=== PATIENT | female | born 1950 | race African-American/Black ===

== ENCOUNTER 2017-11-21 11:28 | Observation (INO) ==
[2017-11-21 12:31] LABS: Basophils % 0.4 % (0.0-0.8); Eosinophils % 0.4 % (0.00-10.9); Hematocrit 38.9 VOL% (35.7-47.0); Hemoglobin 12.2 GM/DL (12.0-16.0); Immature Granulocytes % 0.4 %; Immature Granulocytes Absolute 0.04 #; Lymphocytes # 1.6 10*3/uL (1.4-4.0); Mean Corpuscular HGB Conc 31.4 GM/DL (32-36); Mean Corpuscular Hemoglobin 30 PG (27-34); Mean Platelet Volume 12.5 FL (9.6-12.0); Monocytes # 0.7 10*3/uL (0.11-0.8); Neutrophils # 8.1 10*3/uL (1.4-7.4); Neutrophils % 76.8 % (38.7-73.9); Platelet Count 219 T/CUMM (130-400); Red Blood Count 4.05 MC/CUMM (3.8-5.5); Red Cell Distribution Width 14.2 % (9.3-17.3); White Blood Count 10.6 T/CUMM (4-12)
[2017-11-21 12:40] LABS: INR 1.6; PT Patient Result 16.7 SECS
[2017-11-21 12:54] LABS: Alanine Aminotransferase 22 U/L (13-56); Albumin 3.6 G/DL (3.4-5.0); Alkaline Phosphatase 77 U/L (45-117); Aspartate Amino Transferase 23 U/L (0-37); Bilirubin,Total < 0.39 MG/DL (0.2-1.0); Blood Urea Nitrogen 19 MG/DL (7-18); Calcium 9.1 MG/DL (8.5-10.1); Glucose 138 MG/DL (74-106); Osmolality,Calculated 278.7 MOS/KG (273-304); Potassium 4.3 MMOL/L (3.5-5.1); Sodium 138 MMOL/L (136-145); Total Protein 7.5 G/DL (6.4-8.3)
[2017-11-21 13:57] LABS: Apearance,Urine CLEAR (Clear); Bilirubin,Urine Negative (Negative); Blood, Urine Negative (Negative); Glucose,Urine (UA) >=500 mg/dL (Negative); Ketones,Urine 5 mg/dL (Negative); Nitrite,Urine Negative (Negative); Protein,Urine Negative; RBC,Urine <1 /HPF (0-4); Squamous Epithelial Cell,Urine Occasional /HPF (0-10); Urine Color Yellow (Yellow); Urine Specific Gravity 1.013 (1.001-1.035); Urine Urobilinogen < 2.0 EU/DL (0.2-1.0); WBC,Urine <1 /HPF (0-6)
[2017-11-22 06:45] LABS: INR 2.4
[2017-11-22 06:52] LABS: PT Patient Result 24.8 SECS
[2017-11-22 07:06] LABS: Potassium 3.9 MMOL/L (3.5-5.1)
[2017-11-24 07:30] VITALS: BP 138/76
== END 2017-11-24 11:06 ==
LOC: N.EDINP 11:28 → N.ED 11:28 → N.EDINP 15:41 → N.2W 15:47 → N.4E 17:40 → N.2E 11-22 20:30
PROVIDERS: ADMIT Family Medicine; ATTEND Family Medicine

== ENCOUNTER 2017-12-11 20:32 | Inpatient (IN) ==
[2017-12-11 21:59] LABS: Basophils # 0.1 10*3/uL (0.0-0.2); Basophils % 0.5 % (0.0-0.8); Eosinophils # 0.2 10*3/uL (0.0-0.87); Eosinophils % 2.1 % (0.00-10.9); Hemoglobin 11.8 GM/DL (12.0-16.0); Immature Granulocytes % 0.2 %; Immature Granulocytes Absolute 0.02 #; Lymphocytes # 2.9 10*3/uL (1.4-4.0); Lymphocytes % 31.4 % (21.3-54.2); Mean Corpuscular HGB Conc 31.9 GM/DL (32-36); Mean Corpuscular Hemoglobin 31 PG (27-34); Mean Corpuscular Volume 96.4 FL (87-102); Mean Platelet Volume 12.3 FL (9.6-12.0); Monocytes # 0.6 10*3/uL (0.11-0.8); Monocytes % 6.9 % (1.7-12.7); Neutrophils # 5.5 10*3/uL (1.4-7.4); Neutrophils % 58.9 % (38.7-73.9); Platelet Count 234 T/CUMM (130-400); Red Blood Count 3.84 MC/CUMM (3.8-5.5); Red Cell Distribution Width 13.9 % (9.3-17.3); White Blood Count 9.3 T/CUMM (4-12)
[2017-12-11 22:13] LABS: INR 1.9; PT Patient Result 19.3 SECS
[2017-12-11 22:18] LABS: Ammonia 19 UMOL/L (11-32)
[2017-12-11 22:23] LABS: Alanine Aminotransferase < 9 U/L (13-56); Albumin 3.6 G/DL (3.4-5.0); Alkaline Phosphatase 74 U/L (45-117); Aspartate Amino Transferase 20 U/L (0-37); Bilirubin,Total < 0.39 MG/DL (0.2-1.0); Blood Urea Nitrogen 24 MG/DL (7-18); Calcium 9.5 MG/DL (8.5-10.1); Glucose 108 MG/DL (74-106); Osmolality,Calculated 281.5 MOS/KG (273-304); Potassium 4.1 MMOL/L (3.5-5.1); Sodium 139 MMOL/L (136-145); Total Protein 7.3 G/DL (6.4-8.3)
[2017-12-11 22:40] LABS: Apearance,Urine CLEAR (Clear); Bilirubin,Urine Negative (Negative); Blood, Urine Negative (Negative); Glucose,Urine (UA) >=500 mg/dL (Negative); Hyaline Casts,Urine 1 /LPF (0-3); Ketones,Urine 5 mg/dL (Negative); Mucus,Urine Occasional /LPF (Occasional); Nitrite,Urine Negative (Negative); Protein,Urine Negative; Squamous Epithelial Cell,Urine Occasional /HPF (0-10); Urine Color Amber (Yellow); Urine Specific Gravity 1.017 (1.001-1.035); Urine Urobilinogen < 2.0 EU/DL (0.2-1.0)
[2017-12-11 23:02] LABS: Acetaminophen < 2.0 UG/ML (10-30); Salicylate 4.9 MG/DL (2.8-20)
[2017-12-12] MEDS ORDERED: ACETAMINOPHEN 325 MG TABLET PO PRN (00:36)
[2017-12-12] MEDS ORDERED: LACTULOSE 20 GM/30 ML UDCUP PO PRN (00:36)
[2017-12-12] MEDS ORDERED: GLUCAGON 1 MG VIAL IM PRN (00:36)
[2017-12-12] MEDS ORDERED: ONDANSETRON 4 MG/2 ML VIAL IV PRN (00:36)
[2017-12-12] MEDS ORDERED: DEXTROSE 50% 25 GM/50 ML VIAL IV PRN (00:36)
[2017-12-12] MEDS: SODIUM CHLORIDE 0.9% 1,000 ML IV SCH ×2 (01:11→16:05)
[2017-12-12 04:51] LABS: Barbiturates Screen,Urine Negative (Negative); Benzodiazepines Screen,Urine Negative (Negative); Cannabinoid Screen,Urine Negative (Negative); Opiate Screen,Urine Negative (Negative); Phencyclidine Screen,Urine Negative (Negative)
[2017-12-12 06:23] LABS: Basophils # 0.1 10*3/uL (0.0-0.2); Basophils % 0.7 % (0.0-0.8); Eosinophils # 0.2 10*3/uL (0.0-0.87); Eosinophils % 2.3 % (0.00-10.9); Hematocrit 35.8 VOL% (35.7-47.0); Hemoglobin 11.3 GM/DL (12.0-16.0); Immature Granulocytes % 0.4 %; Immature Granulocytes Absolute 0.03 #; Lymphocytes # 2.3 10*3/uL (1.4-4.0); Lymphocytes % 33.2 % (21.3-54.2); Mean Corpuscular HGB Conc 31.6 GM/DL (32-36); Mean Corpuscular Hemoglobin 30 PG (27-34); Mean Platelet Volume 12.7 FL (9.6-12.0); Monocytes # 0.4 10*3/uL (0.11-0.8); Monocytes % 5.7 % (1.7-12.7); Neutrophils # 3.9 10*3/uL (1.4-7.4); Neutrophils % 57.7 % (38.7-73.9); Platelet Count 241 T/CUMM (130-400); Red Blood Count 3.77 MC/CUMM (3.8-5.5); Red Cell Distribution Width 13.9 % (9.3-17.3); White Blood Count 6.8 T/CUMM (4-12)
[2017-12-12 06:49] LABS: Alanine Aminotransferase 14 U/L (13-56); Albumin 3.2 G/DL (3.4-5.0); Alkaline Phosphatase 67 U/L (45-117); Aspartate Amino Transferase 12 U/L (0-37); Bilirubin,Total < 0.39 MG/DL (0.2-1.0); Blood Urea Nitrogen 19 MG/DL (7-18); Calcium 9.4 MG/DL (8.5-10.1); Cholesterol 131 MG/DL (50-200); Glucose 149 MG/DL (74-106); HDL Cholesterol 51 MG/DL (40-60); Osmolality,Calculated 285.3 MOS/KG (273-304); Potassium 4.1 MMOL/L (3.5-5.1); Risk Ratio 2.57; Sodium 141 MMOL/L (136-145); Total Protein 6.7 G/DL (6.4-8.3); Triglycerides 140 MG/DL (2-150)
[2017-12-12] MEDS: INSULIN REGULAR 100 UNIT/ML SUBCUT SCH ×4 (08:51→22:37)
[2017-12-12] MEDS: DOCUSATE SODIUM 100 MG CAPSULE PO SCH ×2 (08:53→22:36)
[2017-12-12] MEDS: PANTOPRAZOLE 40 MG VIAL IV SCH (08:53)
[2017-12-12] MEDS: ENTACAPONE 200 MG TABLET PO SCH ×3 (13:02→22:37)
[2017-12-12] MEDS: CARBIDOPA/LEVODOPA CR 50-200 MG TABLET PO SCH ×3 (13:38→22:37)
[2017-12-12] MEDS: MAGNESIUM CHLORIDE 64 MG TABLET PO SCH ×2 (15:03→22:37)
[2017-12-12] MEDS: clonazePAM 0.5 MG TABLET PO SCH ×2 (15:03→22:37)
[2017-12-12] MEDS ORDERED: WARFARIN 7.5 MG TABLET PO SCH (18:00)
[2017-12-12] MEDS: MEMANTINE 10 MG TABLET PO SCH (22:37)
[2017-12-12] MEDS: metFORMIN 500 MG TABLET PO SCH (22:37)
[2017-12-13] MEDS: SODIUM CHLORIDE 0.9% 1,000 ML IV SCH (05:28)
[2017-12-13 06:00] LABS: Apearance,Urine CLEAR (Clear); Bilirubin,Urine Negative (Negative); Blood, Urine Negative (Negative); Glucose,Urine (UA) 150 mg/dL (Negative); Ketones,Urine Negative (Negative); Nitrite,Urine Negative (Negative); Protein,Urine Negative; Urine Color Yellow (Yellow); Urine Specific Gravity 1.005 (1.001-1.035); Urine Urobilinogen < 2.0 EU/DL (0.2-1.0); WBC,Urine <1 /HPF (0-6)
[2017-12-13] MEDS: CARBIDOPA/LEVODOPA CR 50-200 MG TABLET PO SCH ×4 (08:54→21:02)
[2017-12-13] MEDS: Canagliflozin [Invokana] 100 MG PO SCH (08:54)
[2017-12-13] MEDS: MEMANTINE 10 MG TABLET PO SCH ×2 (08:55→21:07)
[2017-12-13] MEDS: metFORMIN 500 MG TABLET PO SCH ×2 (08:55→21:02)
[2017-12-13] MEDS: DOCUSATE SODIUM 100 MG CAPSULE PO SCH ×2 (08:55→21:02)
[2017-12-13] MEDS: ENTACAPONE 200 MG TABLET PO SCH ×4 (08:55→21:02)
[2017-12-13] MEDS: CHOLECALCIFEROL 1,000 UNIT TABLET PO SCH (08:56)
[2017-12-13] MEDS: ASPIRIN CHEW 81 MG TABLET PO SCH (08:56)
[2017-12-13] MEDS: clonazePAM 0.5 MG TABLET PO SCH ×3 (08:56→21:02)
[2017-12-13] MEDS: ASCORBIC ACID 500 MG TABLET PO SCH (08:56)
[2017-12-13] MEDS: PARoxetine 20 MG TABLET PO SCH (08:56)
[2017-12-13] MEDS: DILTIAZEM CD 240 MG CAPSULE PO SCH (08:57)
[2017-12-13] MEDS: MAGNESIUM CHLORIDE 64 MG TABLET PO SCH ×3 (08:59→21:02)
[2017-12-13] MEDS ORDERED: VANCOMYCIN INJ 1,000 MG in SODIUM CHLORIDE 0.9% 250 ML IV SCH (09:00)
[2017-12-13] MEDS: PANTOPRAZOLE 40 MG VIAL IV SCH (09:05)
[2017-12-13 09:26] LABS: INR 1.9; PT Patient Result 19.3 SECS
[2017-12-13] MEDS: LISINOPRIL 20 MG TABLET PO SCH (09:35)
[2017-12-13] MEDS: INSULIN REGULAR 100 UNIT/ML SUBCUT SCH ×4 (09:36→21:03)
[2017-12-13] MEDS: VANCOMYCIN INJ 1,250 MG in SODIUM CHLORIDE 0.9% 250 ML IV SCH ×2 (10:37→18:05)
[2017-12-13] MEDS ORDERED: WARFARIN 10 MG TABLET PO SCH (18:00)
[2017-12-14] MEDS: VANCOMYCIN INJ 1,250 MG in SODIUM CHLORIDE 0.9% 250 ML IV SCH ×2 (03:28→13:00)
[2017-12-14 06:57] LABS: INR 1.7; PT Patient Result 18.1 SECS
[2017-12-14 07:28] LABS: Calcium 9.4 MG/DL (8.5-10.1); Osmolality,Calculated 284.1 MOS/KG (273-304); Potassium 3.9 MMOL/L (3.5-5.1)
[2017-12-14] MEDS: INSULIN REGULAR 100 UNIT/ML SUBCUT SCH ×2 (07:37→13:00)
[2017-12-14] MEDS: PANTOPRAZOLE 40 MG VIAL IV SCH (08:27)
[2017-12-14] MEDS: CARBIDOPA/LEVODOPA CR 50-200 MG TABLET PO SCH ×2 (08:27→11:50)
[2017-12-14] MEDS: ASPIRIN CHEW 81 MG TABLET PO SCH (08:27)
[2017-12-14] MEDS: LISINOPRIL 20 MG TABLET PO SCH (08:27)
[2017-12-14] MEDS: DILTIAZEM CD 240 MG CAPSULE PO SCH (08:28)
[2017-12-14] MEDS: ASCORBIC ACID 500 MG TABLET PO SCH (08:28)
[2017-12-14] MEDS: PARoxetine 20 MG TABLET PO SCH (08:28)
[2017-12-14] MEDS: CHOLECALCIFEROL 1,000 UNIT TABLET PO SCH (08:28)
[2017-12-14] MEDS: DOCUSATE SODIUM 100 MG CAPSULE PO SCH (08:28)
[2017-12-14] MEDS: clonazePAM 0.5 MG TABLET PO SCH (08:28)
[2017-12-14] MEDS: MEMANTINE 10 MG TABLET PO SCH (08:28)
[2017-12-14] MEDS: MAGNESIUM CHLORIDE 64 MG TABLET PO SCH (08:29)
[2017-12-14] MEDS: ENTACAPONE 200 MG TABLET PO SCH ×2 (08:29→11:50)
[2017-12-14] MEDS: metFORMIN 500 MG TABLET PO SCH (08:29)
[2017-12-14] MEDS: Canagliflozin [Invokana] 100 MG PO SCH (09:01)
[2017-12-14 12:31] VITALS: BP 143/74
[2017-12-14] MEDS ORDERED: WARFARIN 4 MG TABLET PO SCH (18:00)
[2017-12-14] MEDS ORDERED: WARFARIN 5 MG TABLET PO SCH (18:00)
== END 2017-12-14 14:00 | DRG 918 ==
LOC: EDBD → EDUNIT# → N.ED 20:32 → OBSVTOIN 23:14 → N.EDINP 23:14 → INTOOBSV 23:14 → N.5E 12-12
PROVIDERS: ADMIT Family Medicine; ATTEND Family Medicine

== ENCOUNTER 2018-11-14 15:18 | Observation (INO) ==
[2018-11-14] MEDS ORDERED: ONDANSETRON 4 MG/2 ML VIAL IV PRN (15:58)
[2018-11-14] MEDS ORDERED: GLUCAGON 1 MG VIAL IM PRN (15:58)
[2018-11-14] MEDS ORDERED: DEXTROSE 10% 250 ML BAG IV PRN (15:58)
[2018-11-14] MEDS ORDERED: FUROSEMIDE 20 MG/2 ML VIAL IV PRN (16:47)
[2018-11-14] MEDS ORDERED: SODIUM CHLORIDE 0.9% 1,000 ML IV PRN (16:47)
[2018-11-14 17:17] LABS: Basophils % 0.4 % (0.0-0.8); Eosinophils # 0.1 10*3/uL (0.0-0.87); Eosinophils % 1.2 % (0.00-10.9); Hematocrit 28.7 VOL% (35.7-47.0); Hemoglobin 7.5 GM/DL (12.0-16.0); Immature Granulocytes % 0.4 %; Immature Granulocytes Absolute 0.04 #; Lymphocytes % 21.8 % (21.3-54.2); Mean Corpuscular HGB Conc 26.1 GM/DL (32-36); Mean Corpuscular Volume 76.7 FL (87-102); Mean Platelet Volume 10.9 FL (9.6-12.0); Neutrophils % 68.2 % (38.7-73.9); Platelet Count 490 T/CUMM (130-400); Red Blood Count 3.74 MC/CUMM (3.8-5.5); Red Cell Distribution Width 22.5 % (9.3-17.3)
[2018-11-14 17:18] LABS: Anisocytosis 1+; Hypochromasia 1+; Target Cells Few
[2018-11-14 17:19] LABS: Elliptocytes Few; Platelet Estimate Adequate; Schistocytes Few
[2018-11-14 17:22] LABS: Albumin 3.4 G/DL (3.4-5.0); Bilirubin,Total 0.6 MG/DL (0.2-1.0); Calcium 9.3 MG/DL (8.5-10.1); Osmolality,Calculated 278.4 MOS/KG (273-304); Total Protein 7.4 G/DL (6.4-8.3)
[2018-11-14] MEDS: INSULIN LISPRO 100 UNIT/ML SUBCUT SCH ×2 (17:25→21:52)
[2018-11-14] MEDS: MAGNESIUM CHLORIDE 64 MG TABLET PO SCH (20:53)
[2018-11-14] MEDS: PRAMIPEXOLE 0.25 MG TABLET PO SCH (20:53)
[2018-11-14] MEDS: risperiDONE 1 MG TABLET PO SCH (20:53)
[2018-11-14] MEDS: DOCUSATE SODIUM 100 MG CAPSULE PO SCH (20:59)
[2018-11-14] MEDS: MEMANTINE 10 MG TABLET PO SCH (22:21)
[2018-11-14] MEDS: CARBIDOPA/LEVODOPA 25-100 MG TABLET PO SCH (22:22)
[2018-11-15 06:17] LABS: Basophils % 0.4 % (0.0-0.8); Eosinophils # 0.2 10*3/uL (0.0-0.87); Eosinophils % 2.2 % (0.00-10.9); Hemoglobin 9.3 GM/DL (12.0-16.0); Immature Granulocytes % 0.4 %; Immature Granulocytes Absolute 0.04 #; Lymphocytes # 2.3 10*3/uL (1.4-4.0); Lymphocytes % 24.1 % (21.3-54.2); Mean Corpuscular HGB Conc 29.1 GM/DL (32-36); Mean Corpuscular Volume 77.1 FL (87-102); Monocytes % 8.3 % (1.7-12.7); NRBC # 0.02 10*3/uL; Neutrophils % 64.6 % (38.7-73.9); Platelet Count 425 T/CUMM (130-400); Red Blood Count 4.15 MC/CUMM (3.8-5.5); Red Cell Distribution Width 21.5 % (9.3-17.3); White Blood Count 9.6 T/CUMM (4-12)
[2018-11-15] MEDS: DILTIAZEM CD 240 MG CAPSULE PO SCH (09:36)
[2018-11-15] MEDS: PARoxetine 20 MG TABLET PO SCH (09:42)
[2018-11-15] MEDS: LISINOPRIL 20 MG TABLET PO SCH (09:42)
[2018-11-15] MEDS: MEMANTINE 10 MG TABLET PO SCH ×2 (09:42→21:16)
[2018-11-15] MEDS: DOCUSATE SODIUM 100 MG CAPSULE PO SCH ×2 (09:43→21:16)
[2018-11-15] MEDS: PRAMIPEXOLE 0.25 MG TABLET PO SCH ×3 (09:43→21:17)
[2018-11-15] MEDS: PANTOPRAZOLE 40 MG TABLET PO SCH (09:43)
[2018-11-15] MEDS: MAGNESIUM CHLORIDE 64 MG TABLET PO SCH ×3 (09:43→21:17)
[2018-11-15] MEDS: RIVASTIGMINE 9.5 MG/24 HR PATCH TRANSDERM SCH (09:43)
[2018-11-15] MEDS: CARBIDOPA/LEVODOPA 25-100 MG TABLET PO SCH ×4 (09:57→21:22)
[2018-11-15] MEDS: INSULIN LISPRO 100 UNIT/ML SUBCUT SCH ×3 (10:19→16:40)
[2018-11-15 11:08] LABS: INR 1.5; PT Patient Result 15.8 SECS
[2018-11-15 11:20] LABS: Calcium 9.2 MG/DL (8.5-10.1); Osmolality,Calculated 282.3 MOS/KG (273-304)
[2018-11-15] MEDS ORDERED: ATORVASTATIN 10 MG TABLET PO SCH (21:00)
[2018-11-15] MEDS: risperiDONE 1 MG TABLET PO SCH (21:16)
[2018-11-15] MEDS: ASCORBIC ACID 500 MG TABLET PO SCH (21:17)
[2018-11-15] MEDS: ACETAMINOPHEN 325 MG TABLET PO PRN (21:47)
[2018-11-16] MEDS: INSULIN LISPRO 100 UNIT/ML SUBCUT SCH ×3 (00:35→12:32)
[2018-11-16 05:12] LABS: INR 1.2; PT Patient Result 13.3 SECS
[2018-11-16 05:26] LABS: Basophils # 0.1 10*3/uL (0.0-0.2); Basophils % 0.4 % (0.0-0.8); Eosinophils # 0.3 10*3/uL (0.0-0.87); Eosinophils % 2.5 % (0.00-10.9); Hematocrit 34.5 VOL% (35.7-47.0); Hemoglobin 9.5 GM/DL (12.0-16.0); Immature Granulocytes % 0.4 %; Immature Granulocytes Absolute 0.05 #; Lymphocytes # 2.4 10*3/uL (1.4-4.0); Lymphocytes % 21.2 % (21.3-54.2); Mean Corpuscular HGB Conc 27.5 GM/DL (32-36); Mean Corpuscular Volume 78.8 FL (87-102); Mean Platelet Volume 11.2 FL (9.6-12.0); Monocytes % 8.5 % (1.7-12.7); Platelet Count 476 T/CUMM (130-400); Red Blood Count 4.38 MC/CUMM (3.8-5.5); Red Cell Distribution Width 22.4 % (9.3-17.3); White Blood Count 11.5 T/CUMM (4-12)
[2018-11-16 05:39] LABS: Calcium 9.2 MG/DL (8.5-10.1); Osmolality,Calculated 285.1 MOS/KG (273-304)
[2018-11-16 05:53] LABS: Anisocytosis 1+
[2018-11-16 05:54] LABS: Acanthocytes Few; Hypochromasia 1+; Platelet Estimate Normal; Tear Drop Cells Few
[2018-11-16 07:09] VITALS: BP 151/80
[2018-11-16] MEDS: CARBIDOPA/LEVODOPA 25-100 MG TABLET PO SCH ×2 (09:10→12:44)
[2018-11-16] MEDS: DILTIAZEM CD 240 MG CAPSULE PO SCH (09:11)
[2018-11-16] MEDS: MEMANTINE 10 MG TABLET PO SCH (09:11)
[2018-11-16] MEDS: RIVASTIGMINE 9.5 MG/24 HR PATCH TRANSDERM SCH (09:11)
[2018-11-16] MEDS: MAGNESIUM CHLORIDE 64 MG TABLET PO SCH (09:12)
[2018-11-16] MEDS: PARoxetine 20 MG TABLET PO SCH (09:12)
[2018-11-16] MEDS: DOCUSATE SODIUM 100 MG CAPSULE PO SCH (09:13)
[2018-11-16] MEDS: ASCORBIC ACID 500 MG TABLET PO SCH (09:13)
[2018-11-16] MEDS: LISINOPRIL 20 MG TABLET PO SCH (09:13)
[2018-11-16] MEDS: PRAMIPEXOLE 0.25 MG TABLET PO SCH (09:13)
[2018-11-16] MEDS: PANTOPRAZOLE 40 MG TABLET PO SCH (09:14)
[2018-11-16] MEDS: ACETAMINOPHEN 325 MG TABLET PO PRN ×2 (09:26→14:37)
== END 2018-11-16 15:05 | disposition home or self-care (01) ==
LOC: N.2E
PROVIDERS: ADMIT Family Medicine; ATTEND Family Medicine

== ENCOUNTER 2019-01-31 14:49 | Observation (INO) ==
[2019-01-31 16:30] LABS: Albumin 3.3 G/DL (3.4-5.0); Bilirubin,Total 0.4 MG/DL (0.2-1.0); Calcium 9.2 MG/DL (8.5-10.1); Osmolality,Calculated 280.4 MOS/KG (273-304); Total Protein 7.1 G/DL (6.4-8.3)
[2019-01-31 16:34] LABS: Basophils % 0.4 % (0.0-0.8); Eosinophils # 0.1 10*3/uL (0.0-0.87); Eosinophils % 0.6 % (0.00-10.9); Hemoglobin 12.1 GM/DL (12.0-16.0); Immature Granulocytes % 0.4 %; Immature Granulocytes Absolute 0.03 #; Lymphocytes # 1.5 10*3/uL (1.4-4.0); Lymphocytes % 17.7 % (21.3-54.2); Mean Corpuscular HGB Conc 30.3 GM/DL (32-36); Mean Corpuscular Volume 89.5 FL (87-102); Mean Platelet Volume 11.6 FL (9.6-12.0); Monocytes % 7.7 % (1.7-12.7); Neutrophils % 73.2 % (38.7-73.9); Platelet Count 197 T/CUMM (130-400); Red Blood Count 4.47 MC/CUMM (3.8-5.5); Red Cell Distribution Width 20.1 % (9.3-17.3); White Blood Count 8.3 T/CUMM (4-12)
[2019-01-31 16:50] LABS: Apearance,Urine CLEAR (Clear); Bilirubin,Urine Negative (Negative); Blood, Urine Negative (Negative); Glucose,Urine (UA) >=500 mg/dL (Negative); Hyaline Casts,Urine 3 /LPF (0-3); Ketones,Urine Negative (Negative); Mucus,Urine Occasional /LPF (Occasional); Nitrite,Urine Negative (Negative); Protein,Urine Negative; RBC,Urine 1 /HPF (0-4); Squamous Epithelial Cell,Urine Occasional /HPF (0-10); Urine Color Yellow (Yellow); Urine Specific Gravity 1.025 (1.001-1.035); Urine Urobilinogen < 2.0 EU/DL (0.2-1.0); WBC,Urine 1 /HPF (0-6)
[2019-01-31 17:16] LABS: Barbiturates Screen,Urine Negative (Negative); Benzodiazepines Screen,Urine Negative (Negative); Cannabinoid Screen,Urine Negative (Negative); Opiate Screen,Urine Negative (Negative); Phencyclidine Screen,Urine Negative (Negative)
[2019-01-31] MEDS ORDERED: DOCUSATE SODIUM 100 MG CAPSULE PO PRN (18:41)
[2019-01-31] MEDS ORDERED: ONDANSETRON 4 MG/2 ML VIAL IV PRN (18:41)
[2019-01-31] MEDS ORDERED: GLUCAGON 1 MG VIAL IM PRN (18:41)
[2019-01-31] MEDS ORDERED: DEXTROSE 10% 250 ML BAG IV PRN (18:41)
[2019-01-31] MEDS ORDERED: ACETAMINOPHEN 325 MG TABLET PO PRN (18:41)
[2019-01-31] MEDS: INSULIN REGULAR 100 UNIT/ML SUBCUT SCH (18:59)
[2019-01-31] MEDS: SODIUM CHLORIDE 0.9% 1,000 ML IV SCH (20:49)
[2019-01-31] MEDS: DOCUSATE SODIUM 100 MG CAPSULE PO SCH (20:50)
[2019-01-31] MEDS: ATORVASTATIN 10 MG TABLET PO SCH (20:50)
[2019-01-31] MEDS: PRAMIPEXOLE 0.25 MG TABLET PO SCH (20:50)
[2019-01-31] MEDS: MEMANTINE 10 MG TABLET PO SCH (20:50)
[2019-01-31] MEDS: MAGNESIUM CHLORIDE 64 MG TABLET PO SCH (20:50)
[2019-01-31] MEDS: QUEtiapine 100 MG TABLET PO SCH (20:51)
[2019-01-31] MEDS: metFORMIN 500 MG TABLET PO SCH (23:39)
[2019-02-01] MEDS: INSULIN REGULAR 100 UNIT/ML SUBCUT SCH ×5 (05:38→23:17)
[2019-02-01 08:29] LABS: Basophils % 0.5 % (0.0-0.8); Eosinophils # 0.1 10*3/uL (0.0-0.87); Eosinophils % 0.7 % (0.00-10.9); Hemoglobin 11.7 GM/DL (12.0-16.0); Immature Granulocytes % 0.4 %; Immature Granulocytes Absolute 0.03 #; Lymphocytes # 1.4 10*3/uL (1.4-4.0); Lymphocytes % 17.8 % (21.3-54.2); Mean Corpuscular Volume 90.7 FL (87-102); Mean Platelet Volume 12.1 FL (9.6-12.0); Monocytes % 8.1 % (1.7-12.7); Neutrophils % 72.5 % (38.7-73.9); Platelet Count 201 T/CUMM (130-400); White Blood Count 8.1 T/CUMM (4-12)
[2019-02-01 08:46] LABS: Alanine Aminotransferase 20 U/L (13-56); Alkaline Phosphatase 82 U/L (45-117); Aspartate Amino Transferase 21 U/L (0-37); Bilirubin,Total < 0.39 MG/DL (0.2-1.0); Blood Urea Nitrogen 13 MG/DL (7-18); Calcium 8.7 MG/DL (8.5-10.1); Estimated Glom Filtration Rate 109 ML/MIN; Glucose 110 MG/DL (74-106); Osmolality,Calculated 281.3 MOS/KG (273-304); Total Protein 6.6 G/DL (6.4-8.3)
[2019-02-01 08:47] LABS: Hypochromasia 1+; Platelet Estimate Adequate
[2019-02-01] MEDS: PRAMIPEXOLE 0.25 MG TABLET PO SCH ×3 (09:48→20:15)
[2019-02-01] MEDS: RIVASTIGMINE 9.5 MG/24 HR PATCH TRANSDERM SCH (09:48)
[2019-02-01] MEDS: DOCUSATE SODIUM 100 MG CAPSULE PO SCH ×2 (09:49→20:15)
[2019-02-01] MEDS: PANTOPRAZOLE 40 MG TABLET PO SCH (09:49)
[2019-02-01] MEDS: MEMANTINE 10 MG TABLET PO SCH ×2 (09:49→20:16)
[2019-02-01] MEDS: MAGNESIUM CHLORIDE 64 MG TABLET PO SCH ×3 (09:49→20:15)
[2019-02-01] MEDS: PARoxetine 20 MG TABLET PO SCH (09:49)
[2019-02-01] MEDS: LISINOPRIL 20 MG TABLET PO SCH (09:50)
[2019-02-01] MEDS: metFORMIN 500 MG TABLET PO SCH ×2 (09:50→20:16)
[2019-02-01] MEDS: METOPROLOL SUCCINATE XL 100 MG TABLET PO SCH (09:50)
[2019-02-01] MEDS: DILTIAZEM CD 240 MG CAPSULE PO SCH (09:50)
[2019-02-01] MEDS: NON-FORMULARY MEDICATION (Canagliflozin [Invokana] 100 MG) PO SCH (09:51)
[2019-02-01] MEDS: SODIUM CHLORIDE 0.9% 1,000 ML IV SCH (18:22)
[2019-02-01] MEDS: QUEtiapine 100 MG TABLET PO SCH (20:15)
[2019-02-01] MEDS: ATORVASTATIN 10 MG TABLET PO SCH (20:16)
[2019-02-02] MEDS: SODIUM CHLORIDE 0.9% 1,000 ML IV SCH ×4 (00:12→20:48)
[2019-02-02] MEDS: INSULIN REGULAR 100 UNIT/ML SUBCUT SCH ×4 (05:38→23:12)
[2019-02-02] MEDS: PARoxetine 20 MG TABLET PO SCH (09:06)
[2019-02-02] MEDS: metFORMIN 500 MG TABLET PO SCH ×2 (09:06→20:44)
[2019-02-02] MEDS: PRAMIPEXOLE 0.25 MG TABLET PO SCH ×3 (09:07→20:44)
[2019-02-02] MEDS: DOCUSATE SODIUM 100 MG CAPSULE PO SCH ×2 (09:08→20:44)
[2019-02-02] MEDS: PANTOPRAZOLE 40 MG TABLET PO SCH (09:08)
[2019-02-02] MEDS: MEMANTINE 10 MG TABLET PO SCH ×2 (09:08→20:44)
[2019-02-02] MEDS: MAGNESIUM CHLORIDE 64 MG TABLET PO SCH ×3 (09:08→20:44)
[2019-02-02] MEDS: RIVASTIGMINE 9.5 MG/24 HR PATCH TRANSDERM SCH (09:09)
[2019-02-02] MEDS: NON-FORMULARY MEDICATION (Canagliflozin [Invokana] 100 MG) PO SCH (09:11)
[2019-02-02] MEDS: LISINOPRIL 20 MG TABLET PO SCH (09:12)
[2019-02-02] MEDS: DILTIAZEM CD 240 MG CAPSULE PO SCH (16:45)
[2019-02-02] MEDS: METOPROLOL SUCCINATE XL 100 MG TABLET PO SCH (16:46)
[2019-02-02] MEDS: ATORVASTATIN 10 MG TABLET PO SCH (20:44)
[2019-02-02] MEDS: QUEtiapine 100 MG TABLET PO SCH (20:44)
[2019-02-03] MEDS: SODIUM CHLORIDE 0.9% 1,000 ML IV SCH ×2 (02:54→10:23)
[2019-02-03] MEDS: INSULIN REGULAR 100 UNIT/ML SUBCUT SCH ×3 (05:58→19:28)
[2019-02-03] MEDS: DOCUSATE SODIUM 100 MG CAPSULE PO SCH ×2 (08:22→20:12)
[2019-02-03] MEDS: PANTOPRAZOLE 40 MG TABLET PO SCH (08:23)
[2019-02-03] MEDS: LISINOPRIL 20 MG TABLET PO SCH (08:23)
[2019-02-03] MEDS: PRAMIPEXOLE 0.25 MG TABLET PO SCH ×3 (08:24→20:11)
[2019-02-03] MEDS: metFORMIN 500 MG TABLET PO SCH ×2 (08:24→20:12)
[2019-02-03] MEDS: PARoxetine 20 MG TABLET PO SCH (08:25)
[2019-02-03] MEDS: METOPROLOL SUCCINATE XL 100 MG TABLET PO SCH (08:25)
[2019-02-03] MEDS: DILTIAZEM CD 240 MG CAPSULE PO SCH (08:25)
[2019-02-03] MEDS: MEMANTINE 10 MG TABLET PO SCH ×2 (08:25→20:12)
[2019-02-03] MEDS: RIVASTIGMINE 9.5 MG/24 HR PATCH TRANSDERM SCH (08:26)
[2019-02-03] MEDS: MAGNESIUM CHLORIDE 64 MG TABLET PO SCH ×3 (08:30→20:12)
[2019-02-03] MEDS: NON-FORMULARY MEDICATION (Canagliflozin [Invokana] 100 MG) PO SCH (08:30)
[2019-02-03] MEDS: ATORVASTATIN 10 MG TABLET PO SCH (20:12)
[2019-02-03] MEDS: QUEtiapine 100 MG TABLET PO SCH (20:12)
[2019-02-04] MEDS: INSULIN REGULAR 100 UNIT/ML SUBCUT SCH ×3 (02:30→11:44)
[2019-02-04] MEDS: METOPROLOL SUCCINATE XL 100 MG TABLET PO SCH (09:30)
[2019-02-04] MEDS: PARoxetine 20 MG TABLET PO SCH (09:30)
[2019-02-04] MEDS: MAGNESIUM CHLORIDE 64 MG TABLET PO SCH ×2 (09:31→14:44)
[2019-02-04] MEDS: MEMANTINE 10 MG TABLET PO SCH (09:31)
[2019-02-04] MEDS: LISINOPRIL 20 MG TABLET PO SCH (09:31)
[2019-02-04] MEDS: RIVASTIGMINE 9.5 MG/24 HR PATCH TRANSDERM SCH (09:31)
[2019-02-04] MEDS: DOCUSATE SODIUM 100 MG CAPSULE PO SCH (09:31)
[2019-02-04] MEDS: PRAMIPEXOLE 0.25 MG TABLET PO SCH ×2 (09:31→14:44)
[2019-02-04] MEDS: PANTOPRAZOLE 40 MG TABLET PO SCH (09:31)
[2019-02-04] MEDS: DILTIAZEM CD 240 MG CAPSULE PO SCH (09:31)
[2019-02-04] MEDS: metFORMIN 500 MG TABLET PO SCH (09:32)
[2019-02-04] MEDS: NON-FORMULARY MEDICATION (Canagliflozin [Invokana] 100 MG) PO SCH (09:32)
[2019-02-04 11:55] VITALS: BP 147/67
== END 2019-02-04 15:55 | disposition home health service (06) ==
LOC: EDUNIT# → EDBD → N.EDINP 14:49 → N.ED 14:49 → N.5E 18:10
PROVIDERS: ADMIT Family Medicine; ATTEND Family Medicine

== ENCOUNTER 2019-05-31 16:20 | Observation (INO) ==
[2019-05-31 17:11] LABS: Basophils % 0.4 % (0.0-0.8); Eosinophils # 0.1 10*3/uL (0.0-0.87); Eosinophils % 1.6 % (0.00-10.9); Hematocrit 44.3 VOL% (35.7-47.0); Hemoglobin 13.8 GM/DL (12.0-16.0); Immature Granulocytes % 0.4 %; Immature Granulocytes Absolute 0.03 #; Lymphocytes # 0.7 10*3/uL (1.4-4.0); Lymphocytes % 8.7 % (21.3-54.2); Mean Corpuscular HGB Conc 31.2 GM/DL (32-36); Mean Corpuscular Volume 94.5 FL (87-102); Mean Platelet Volume 11.8 FL (9.6-12.0); Monocytes % 8.1 % (1.7-12.7); Neutrophils % 80.8 % (38.7-73.9); Platelet Count 282 T/CUMM (130-400); Red Blood Count 4.69 MC/CUMM (3.8-5.5); Red Cell Distribution Width 14.6 % (9.3-17.3); White Blood Count 7.7 T/CUMM (4-12)
[2019-05-31 17:17] LABS: Osmolality,Calculated 273.7 MOS/KG (273-304)
[2019-05-31 17:54] LABS: Apearance,Urine CLEAR (Clear); Bilirubin,Urine Negative (Negative); Blood, Urine Negative (Negative); Glucose,Urine (UA) >=500 mg/dL (Negative); Ketones,Urine Negative (Negative); Mucus,Urine Occasional /LPF (Occasional); Nitrite,Urine Negative (Negative); Protein,Urine Negative; RBC,Urine <1 /HPF (0-4); Squamous Epithelial Cell,Urine Occasional /HPF (0-10); Urine Color Yellow (Yellow); Urine Specific Gravity 1.024 (1.001-1.035); Urine Urobilinogen < 2.0 EU/DL (0.2-1.0); WBC,Urine 1 /HPF (0-6)
[2019-05-31 18:20] LABS: PT Patient Result 10.4 SECS (9.6-12.2)
[2019-05-31] MEDS ORDERED: ONDANSETRON 4 MG/2 ML VIAL IV PRN (18:30)
[2019-05-31] MEDS ORDERED: ACETAMINOPHEN 325 MG TABLET PO PRN (18:30)
[2019-05-31] MEDS ORDERED: ASPIRIN CHEW 81 MG TABLET PO SCH (18:33)
[2019-05-31] MEDS ORDERED: ENOXAPARIN 40 MG/0.4 ML SYRINGE SUBCUT SCH (21:00)
[2019-05-31] MEDS: DEXTROSE 5% NACL 0.45% 1,000 ML IV SCH (21:41)
[2019-05-31] MEDS: DOCUSATE SODIUM 100 MG CAPSULE PO SCH (21:41)
[2019-06-01] MEDS: DEXTROSE 5% NACL 0.45% 1,000 ML IV SCH (06:08)
[2019-06-01 06:47] LABS: Basophils % 0.5 % (0.0-0.8); Eosinophils # 0.1 10*3/uL (0.0-0.87); Eosinophils % 1.4 % (0.00-10.9); Hematocrit 37.8 VOL% (35.7-47.0); Immature Granulocytes % 0.3 %; Immature Granulocytes Absolute 0.02 #; Lymphocytes # 1.1 10*3/uL (1.4-4.0); Lymphocytes % 18.2 % (21.3-54.2); Mean Corpuscular HGB Conc 31.7 GM/DL (32-36); Mean Corpuscular Volume 93.1 FL (87-102); Mean Platelet Volume 11.6 FL (9.6-12.0); Monocytes % 10.9 % (1.7-12.7); Neutrophils % 68.7 % (38.7-73.9); Platelet Count 282 T/CUMM (130-400); Red Blood Count 4.06 MC/CUMM (3.8-5.5); Red Cell Distribution Width 14.5 % (9.3-17.3); White Blood Count 5.8 T/CUMM (4-12)
[2019-06-01 07:20] LABS: Albumin 3.1 G/DL (3.4-5.0); Bilirubin,Total 0.4 MG/DL (0.2-1.0); Calcium 9.4 MG/DL (8.5-10.1); Osmolality,Calculated 274.5 MOS/KG (273-304); Risk Ratio 2.02; Total Protein 6.8 G/DL (6.4-8.3); VLDL CHOLESTEROL 15.8 MG/DL
[2019-06-01 08:44] VITALS: BP 150/75
[2019-06-01] MEDS ORDERED: PARoxetine 10 MG TABLET PO SCH (09:00)
[2019-06-01] MEDS ORDERED: MAGNESIUM CHLORIDE 64 MG TABLET PO SCH (09:00)
[2019-06-01] MEDS ORDERED: RIVASTIGMINE 9.5 MG/24 HR PATCH TRANSDERM SCH (09:00)
[2019-06-01] MEDS ORDERED: PANTOPRAZOLE 40 MG TABLET PO SCH (09:00)
[2019-06-01] MEDS ORDERED: METOPROLOL SUCCINATE XL 100 MG TABLET PO SCH (09:00)
[2019-06-01] MEDS ORDERED: PRAMIPEXOLE 0.25 MG TABLET PO SCH ×3 (09:00→21:00)
[2019-06-01] MEDS ORDERED: lisinopriL 20 MG TABLET PO SCH (09:00)
[2019-06-01] MEDS ORDERED: metFORMIN 500 MG TABLET PO SCH (09:00)
[2019-06-01] MEDS ORDERED: MEMANTINE 5 MG TABLET PO SCH (09:00)
[2019-06-01] MEDS ORDERED: DILTIAZEM CD 240 MG CAPSULE PO SCH (09:00)
[2019-06-01] MEDS ORDERED: Canagliflozin [Invokana] 100 MG PO SCH (09:00)
[2019-06-01] MEDS: DOCUSATE SODIUM 100 MG CAPSULE PO SCH (09:06)
[2019-06-01] MEDS ORDERED: QUEtiapine 100 MG TABLET PO SCH (21:00)
[2019-06-01] MEDS ORDERED: ATORVASTATIN 10 MG TABLET PO SCH (21:00)
== END 2019-06-01 11:28 ==
LOC: EDUNIT# → EDBD → N.EDINP 16:20 → N.ED 16:20 → N.2E 20:10
PROVIDERS: ADMIT Family Medicine; ATTEND Family Medicine

== ENCOUNTER 2019-06-11 12:57 | Observation (INO) ==
[2019-06-11 14:52] LABS: Basophils % 0.3 % (0.0-0.8); Eosinophils # 0.1 10*3/uL (0.0-0.87); Eosinophils % 0.7 % (0.00-10.9); Hematocrit 42.9 VOL% (35.7-47.0); Hemoglobin 13.6 GM/DL (12.0-16.0); Immature Granulocytes % 0.2 %; Immature Granulocytes Absolute 0.02 #; Lymphocytes # 1.8 10*3/uL (1.4-4.0); Lymphocytes % 19.4 % (21.3-54.2); Mean Corpuscular HGB Conc 31.7 GM/DL (32-36); Mean Corpuscular Volume 93.1 FL (87-102); Mean Platelet Volume 11.4 FL (9.6-12.0); Monocytes % 7.3 % (1.7-12.7); Neutrophils % 72.1 % (38.7-73.9); Platelet Count 255 T/CUMM (130-400); Red Blood Count 4.61 MC/CUMM (3.8-5.5); Red Cell Distribution Width 14.6 % (9.3-17.3); White Blood Count 9.1 T/CUMM (4-12)
[2019-06-11 15:10] LABS: Albumin 3.5 G/DL (3.4-5.0); Bilirubin,Total 0.4 MG/DL (0.2-1.0); Calcium 9.7 MG/DL (8.5-10.1); Osmolality,Calculated 271.8 MOS/KG (273-304); Total Protein 7.6 G/DL (6.4-8.3)
[2019-06-11 16:26] LABS: Apearance,Urine CLEAR (Clear); Bilirubin,Urine Negative (Negative); Blood, Urine Negative (Negative); Glucose,Urine (UA) >=500 mg/dL (Negative); Ketones,Urine Negative (Negative); Mucus,Urine Occasional /LPF (Occasional); Nitrite,Urine Negative (Negative); Protein,Urine Negative; Urine Color Yellow (Yellow); Urine Specific Gravity 1.018 (1.001-1.035); Urine Urobilinogen < 2.0 EU/DL (0.2-1.0); WBC,Urine 1 /HPF (0-6)
[2019-06-11] MEDS ORDERED: ACETAMINOPHEN 325 MG TABLET PO PRN (16:44)
[2019-06-11] MEDS ORDERED: DEXTROSE 10% 25 GM/250 ML BAG IV PRN (16:44)
[2019-06-11] MEDS ORDERED: ONDANSETRON 4 MG/2 ML VIAL IV PRN (16:44)
[2019-06-11] MEDS ORDERED: GLUCAGON 1 MG VIAL IM PRN (16:44)
[2019-06-11] MEDS ORDERED: DEXTROSE 50% 25 GM/50 ML VIAL IV PRN (19:54)
[2019-06-11] MEDS: ATORVASTATIN 10 MG TABLET PO SCH (21:03)
[2019-06-11] MEDS: QUEtiapine 100 MG TABLET PO SCH (21:03)
[2019-06-11] MEDS: MEMANTINE 10 MG TABLET PO SCH (21:03)
[2019-06-11] MEDS: PRAMIPEXOLE 0.25 MG TABLET PO SCH (21:03)
[2019-06-11] MEDS: DOCUSATE SODIUM 100 MG CAPSULE PO SCH (21:03)
[2019-06-11] MEDS: INSULIN LISPRO 100 UNIT/ML SUBCUT SCH (21:12)
[2019-06-12] MEDS ORDERED: Canagliflozin [Invokana] 100 MG PO SCH (09:00)
[2019-06-12] MEDS ORDERED: hydrALAZINE 20 MG/1 ML VIAL IV PRN (09:17)
[2019-06-12] MEDS: PRAMIPEXOLE 0.25 MG TABLET PO SCH ×2 (09:25→21:22)
[2019-06-12] MEDS: DOCUSATE SODIUM 100 MG CAPSULE PO SCH ×2 (09:26→21:22)
[2019-06-12] MEDS: ASPIRIN CHEW 81 MG TABLET PO SCH (09:26)
[2019-06-12] MEDS: RIVASTIGMINE 9.5 MG/24 HR PATCH TRANSDERM SCH (09:26)
[2019-06-12] MEDS: PANTOPRAZOLE 40 MG TABLET PO SCH (09:26)
[2019-06-12] MEDS: MEMANTINE 10 MG TABLET PO SCH ×2 (09:26→21:22)
[2019-06-12] MEDS: INSULIN LISPRO 100 UNIT/ML SUBCUT SCH ×4 (09:52→21:22)
[2019-06-12] MEDS ORDERED: TUBERCULIN SKIN TEST 0.1 ML SYRINGE INTRADERM ONE (10:43)
[2019-06-12] MEDS: PARoxetine 20 MG TABLET PO SCH (13:04)
[2019-06-12] MEDS: lisinopriL 20 MG TABLET PO SCH (13:04)
[2019-06-12] MEDS: DILTIAZEM CD 240 MG CAPSULE PO SCH (13:41)
[2019-06-12] MEDS: ATORVASTATIN 10 MG TABLET PO SCH (21:22)
[2019-06-12] MEDS: QUEtiapine 100 MG TABLET PO SCH (21:22)
[2019-06-13] MEDS: INSULIN LISPRO 100 UNIT/ML SUBCUT SCH ×4 (07:59→20:46)
[2019-06-13] MEDS: DILTIAZEM CD 240 MG CAPSULE PO SCH (09:14)
[2019-06-13] MEDS: lisinopriL 20 MG TABLET PO SCH (09:14)
[2019-06-13] MEDS: RIVASTIGMINE 9.5 MG/24 HR PATCH TRANSDERM SCH (09:14)
[2019-06-13] MEDS: PANTOPRAZOLE 40 MG TABLET PO SCH (09:15)
[2019-06-13] MEDS: ASPIRIN CHEW 81 MG TABLET PO SCH (09:15)
[2019-06-13] MEDS: MEMANTINE 10 MG TABLET PO SCH ×2 (09:15→21:53)
[2019-06-13] MEDS: PARoxetine 20 MG TABLET PO SCH (09:15)
[2019-06-13] MEDS: DOCUSATE SODIUM 100 MG CAPSULE PO SCH ×2 (09:15→21:53)
[2019-06-13] MEDS: PRAMIPEXOLE 0.25 MG TABLET PO SCH ×2 (09:16→21:53)
[2019-06-13] MEDS: QUEtiapine 100 MG TABLET PO SCH (21:53)
[2019-06-13] MEDS: ATORVASTATIN 10 MG TABLET PO SCH (21:53)
[2019-06-14] MEDS: INSULIN LISPRO 100 UNIT/ML SUBCUT SCH ×2 (08:11→12:10)
[2019-06-14] MEDS: DILTIAZEM CD 240 MG CAPSULE PO SCH (09:58)
[2019-06-14] MEDS: lisinopriL 20 MG TABLET PO SCH (09:58)
[2019-06-14] MEDS: RIVASTIGMINE 9.5 MG/24 HR PATCH TRANSDERM SCH (09:58)
[2019-06-14] MEDS: PANTOPRAZOLE 40 MG TABLET PO SCH (09:59)
[2019-06-14] MEDS: DOCUSATE SODIUM 100 MG CAPSULE PO SCH (09:59)
[2019-06-14] MEDS: PRAMIPEXOLE 0.25 MG TABLET PO SCH (09:59)
[2019-06-14] MEDS: PARoxetine 20 MG TABLET PO SCH (09:59)
[2019-06-14] MEDS: MEMANTINE 10 MG TABLET PO SCH (09:59)
[2019-06-14] MEDS: ASPIRIN CHEW 81 MG TABLET PO SCH (10:00)
[2019-06-14] MEDS ORDERED: BISACODYL 10 MG SUPP RECTAL ONE (11:34)
[2019-06-14 12:23] VITALS: BP 107/69
[2019-06-15] MEDS ORDERED: POLYETHYLENE GLYCOL POWDER 17 GM PACK PO SCH (11:33)
== END 2019-06-14 15:38 ==
LOC: EDBD → EDUNIT# → N.EDINP 12:57 → N.ED 12:57 → N.5E 17:29
PROVIDERS: ADMIT Family Medicine; ATTEND Family Medicine